=== PATIENT | female | born 1965 | race Two or more races ===

== ENCOUNTER 2020-04-09 12:44 | Emergency (ER) | payer MEDICARE, OTHER ==
--- NOTE | 2020-04-09 13:45 | EDM.PDOC ---
ED HPI GENERAL MEDICAL PROBLEM - General Chief Complaint: Lower Extremity Injury/Pain Stated Complaint: LT LEG AND BACK PAIN Time Seen by Provider: 04/09/20 13:00 Source of Information: Reports: Patient, Family History Limitations: Reports: No Limitations - History of Present Illness INITIAL COMMENTS - FREE TEXT/NARRATIVE: Patient presented to the ED because she slipped and fell and twisted her left knee and left ankle. She c/o 7/10 pain which is worse with movements. Left Leg Pain Score (Numeric/FACES): 10 - Related Data Allergies Allergy/AdvReac Type Severity Reaction Status Date / Time Penicillins Allergy Other Verified 04/09/20 13:00 Home Meds: Home Meds Cyclobenzaprine [Flexeril] 10 mg PO TID PRN #15 tab 04/09/20 [Rx] Gabapentin [Neurontin] 300 mg PO BID 04/09/20 [History] Rosuvastatin [Crestor] 5 mg PO DAILY 04/09/20 [History] amLODIPine [Norvasc] 5 mg PO DAILY 04/09/20 [History] sitaGLIPtin Phos/Metformin HCl [Janumet 50-1,000 MG] 1 tab PO BID 04/09/20 [History] traMADol [Ultram] 100 mg PO Q8H PRN #15 tab 04/09/20 [Rx] Social & Family History - Tobacco Use Smoking Status *Q: Never Smoker - Caffeine Use Caffeine Use: Reports: None - Recreational Drug Use Recreational Drug Use: No Review of Systems - Review of Systems Review Of Systems: See Below Constitutional: Reports: No Symptoms Ears: Reports: No Symptoms Nose: Reports: No Symptoms Mouth/Throat: Reports: No Symptoms Respiratory: Reports: No Symptoms Cardiovascular: Reports: No Symptoms GI/Abdominal: Reports: No Symptoms Genitourinary: Reports: No Symptoms Musculoskeletal: Reports: Joint Pain Skin: Reports: No Symptoms Neurological: Reports: No Symptoms ED EXAM, GENERAL - Physical Exam Exam: See Below Exam Limited By: No Limitations General Appearance: Alert, No Apparent Distress Eye Exam: Bilateral Eye: PERRL Ears: Normal External Exam, Normal Canal Nose: Normal Inspection, Normal Mucosa Throat/Mouth: Normal Inspection, Normal Lips, Normal Teeth Head: Atraumatic, Normocephalic Neck: Normal Inspection, Supple, Non-Tender, Full Range of Motion Respiratory/Chest: No Respiratory Distress, Lungs Clear, Normal Breath Sounds Cardiovascular: Normal Peripheral Pulses, Regular Rate, Rhythm, No Edema, No Gallop, No JVD, No Murmur GI/Abdominal: Normal Bowel Sounds, Soft, Non-Tender, No Organomegaly Back Exam: Normal Inspection, Full Range of Motion Extremities: Normal Inspection, Limited Range of Motion, Other (tenderness over the left knee and left ankle with mild swelling) Neurological: Alert, Oriented, CN II-XII Intact Psychiatric: Normal Affect, Normal Mood Skin Exam: Warm, Dry Course - Vital Signs Text/Narrative:: Xray left ankle/knee-neg tramadol 100 mg po x1 tylenol 1000 mg po x1 flexeril 10 mg po x1 Last Recorded V/S: Last Vital Signs Temp 36.7 C 04/09/20 12:47 Pulse 86 04/09/20 12:47 Resp 16 04/09/20 12:47 BP 137/72 04/09/20 12:47 Pulse Ox 97 04/09/20 12:47 - Orders/Labs/Meds Orders: Active Orders 24 hr Category Date Time Status Ankle Min 3V Lt [CR] Stat Exams 04/09/20 13:06 Taken Knee 3V Lt [CR] Stat Exams 04/09/20 13:05 Taken Meds: Medications Discontinued Medications Generic Name Dose Route Start Last Admin Trade Name Freq PRN Reason Stop Dose Admin Acetaminophen 1,000 mg 04/09/20 13:52 04/09/20 14:00 Tylenol Extra Strength PO 04/09/20 13:53 1,000 mg ONETIME ONE Administration Cyclobenzaprine HCl 10 mg 04/09/20 13:52 04/09/20 13:59 Flexeril PO 04/09/20 13:53 10 mg ONETIME ONE Administration Tramadol HCl 100 mg 04/09/20 13:52 04/09/20 13:59 Ultram PO 04/09/20 13:53 100 mg ONETIME ONE Administration Departure - Departure Time of Disposition: 13:50 Disposition: Home, Self-Care 01 Condition: Good Clinical Impression: Knee sprain, Ankle sprain - Discharge Information Prescriptions: Cyclobenzaprine [Flexeril] 10 mg PO TID PRN #15 tab PRN Reason: Spasms traMADol [Ultram] 100 mg PO Q8H PRN #15 tab PRN Reason: Pain Instructions: Ankle Sprain, Knee Sprain, Adult Referrals: PCP,None [Primary Care Provider] - Forms: ED Department Discharge Additional Instructions: please read discharge instructions on ankle and knee sprain apply ice elevate take the following medicines all at the same time for better pain relief. See instructions on medicine container flexeril/cyclobenzaprine tramadol/ultram Tylenol(over the counter), take 100 mg ever 8 hours with ibuprofen and flexeril Follow up as needed Sepsis Event Note (ED) - Evaluation Sepsis Screening Result: No Definite Risk - Focused Exam Vital Signs: Vital Signs Temp Pulse Resp BP Pulse Ox 04/09/20 12:47 36.7 C 86 16 137/72 97 - My Orders Last 24 Hours: My Active Orders 04/09/20 13:05 Knee 3V Lt [CR] Stat 04/09/20 13:06 Ankle Min 3V Lt [CR] Stat - Assessment/Plan Last 24 Hours: My Active Orders 04/09/20 13:05 Knee 3V Lt [CR] Stat 04/09/20 13:06 Ankle Min 3V Lt [CR] Stat
[2020-04-09] MEDS ORDERED: Cyclobenzaprine 10 MG Tab PO ONE (13:52)
[2020-04-09] MEDS ORDERED: traMADol 50 MG Tab PO ONE (13:52)
[2020-04-09] MEDS ORDERED: Acetaminophen 500 MG Tab PO ONE (13:52)
--- NOTE | 2020-04-09 15:35 | CR ---
INDICATION: Fall. Pain. Black and blue. LEFT KNEE: Four images of the left knee in three projections were obtained and revealed evidence of minimal degenerative changes at the patellofemoral joint and medial intercondylar spine as well as medially off the tibia. Normal bone density was noted. A fracture, dislocation or other acute bone or joint abnormality was not identified. If symptoms persist - if occult fracture site is suspected clinically, reexamination in 10-14 days may be helpful. BRITTANID
--- NOTE | 2020-04-09 15:38 | CR ---
INDICATION: Fall. Pain. LEFT ANKLE: Three views of the left ankle revealed a small plantar calcaneal spur and a tiny posterior calcaneal spur. The ankle mortise appeared to be intact without evidence of a gross fracture site, dislocation or other gross abnormality with the talar dome appearing intact. There are some tiny calcific-appearing densities inferior to the medial malleolus, which could represent dystrophic calcification from previous injury, although on 1 image, there is question of a tiny crescent-shaped avulsion chip fracture fragment. This should be correlated clinically. The study was otherwise unremarkable. FERNANDO
== END 2020-04-09 14:37 | disposition home or self-care (01) ==
LOC: FB.ED 12:44
DX: S83.92XA Sprain of unspecified site of left knee, initial encounter (principal); S93.402A Sprain of unspecified ligament of left ankle, initial encounter; Z88.0 Allergy status to penicillin; Z79.899 Other long term (current) drug therapy; W01.0XXA Fall on same level from slipping, tripping and stumbling without subsequent striking against object, initial encounter
CPT/HCPCS: 73562-LT; 73610-LT; 99283; A9270-GY